=== PATIENT | female | born 1935 | race Caucasian/White ===

== ENCOUNTER 2020-02-21 09:32 | Inpatient (IN) | payer OTHER ==
[2020-02-21] MEDS ORDERED: NA CHLORIDE 0.9% 2,000 ML ONE (10:23)
[2020-02-21 10:25] LABS: Protime INR 1.07
--- NOTE | 2020-02-21 10:28 | RAD REPORT ---
EXAM DESCRIPTION: [facility] Single View02/21/2020 10:21 am CLINICAL HISTORY: Decreased appetite/weakness COMPARISON: none FINDINGS: The lungs appear clear of acute infiltrate. The heart is normal size. Prominent skin folds overlie the chest IMPRESSION: No acute abnormalities displayed
[2020-02-21 10:42] LABS: ALT/SGPT 9 U/L (12-78); AST/SGOT 17 U/L (15-37); Alkaline Phosphatase 99 U/L (45-117); BUN Blood Urea Nitrogen 24 mg/dL (7-18); Bicarbonate 16 mmol/L (21-32); Bilirubin Direct 0.1 mg/dL (0-0.2); Bilirubin Total 0.3 mg/dL (0.2-1.0); Glucose Level 219 mg/dL (74-106); Protein, Total 8.1 g/dL (6.4-8.2); Sodium Level 128 mmol/L (136-145); Troponin (Emerg Dept Use Only) < 0.02 ng/mL (0.0-0.045)
[2020-02-21 10:54] LABS: Absolute Lymphocytes (CBC) 1.2 K/uL (0.7-4.9); Basophils % 0.2 % (0-1.3); Hematocrit 37.9 % (36.0-45.0); Lymphocytes % 4.7 % (15.3-44.8); MPV 8.5 fL (7.6-11.3)
--- NOTE | 2020-02-21 11:15 | RAD REPORT ---
EXAM DESCRIPTION: CT - Head Brain Wo Cont - 02/21/2020 11:07 am CLINICAL HISTORY: Alteration of awareness/confusion COMPARISON: None TECHNIQUE: Computed axial tomography of the head was obtained. IV contrast was not requested. All CT scans are performed using dose optimization technique as appropriate and may include automated exposure control or mA/KV adjustment according to patient size. FINDINGS: An intracranial bleed is not seen . The ventricles are normal in caliber. No extra-axial fluid collection is noted. Fluid within the sinuses/ mastoids is not seen. IMPRESSION: No acute intracranial abnormality is seen. If patient's symptoms persist MRI of the bra in would be recommended.
--- NOTE | 2020-02-21 11:28 | RAD REPORT ---
EXAM DESCRIPTION: CT - Abdomen Pelvis W Contrast - 02/21/2020 11:08 am CLINICAL HISTORY: Abdominal pain COMPARISON: none. TECHNIQUE: Computed axial tomography of the abdomen pelvis was obtained. 100 cc Isovue-300 was admin istered intravenously. Oral contrast was not requested which limits evaluation of bowel. All CT scans are performed using dose optimization technique as appropriate and may include automated exposure control or mA/KV adjustment according to patient size. FINDINGS: Several nodules within the right lower lobe measuring a couple millimeters. The liver, spleen, pancreas, kidneys are unremarkable. Hyperplasia of the adrenal glands is suspected. Cholelithiasis. No gallbladder wall thickening. 6 centimeter rectal mass narrows the lumen. Mass appears to extend through the rectal wall. Evaluatio n is somewhat limited secondary to artifact from bilateral hip prostheses. Small amount of ascites. P erirectal lymph nodes Wall of the sigmoid colon mildly thickened. Borderline dilatation of the appendix. No adjacent stranding. Hemangioma T9 vertebral body. 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 Borderline dilatation of the appendix. Since there is no adjacent stranding this probably is not sign ificant. Early appendicitis can also have this appearance should be correlated clinically. Tiny right lower lobe lung nodules
--- NOTE | 2020-02-21 12:01 | ER ---
Nurse's Notes [facility] Name: Carolyn Garrett Age: 84 yrs Sex: Female : 1935 Arrival Date: 02/21/2020 Time: 09:34 Bed 5 Private MD: Diagnosis: Weakness;Leukocytosis;Rectal mass Presentation: 02/20 09:45 Chief complaint: Patient states: I've been getting weaker and weaker over the past jl7 several months, can't stand up, can't do anything for myself. Coronavirus screen: Proceed with normal triage. Ebola Screen: No symptoms or risks identified at this time. Initial Sepsis Screen: Does the patient meet any 2 criteria? HR > 90 bpm. Does the patient have a suspected source of infection? Yes: Skin breakdown/wound Risk Assessment: Do you want to hurt yourself or someone else? Patient reports no desire to harm self or others. Onset of symptoms is unknown. 09:45 Method Of Arrival: Wheelchair [facility] 09:45 Acuity: INGE 2 jl7 Triage Assessment: 09:40 General: Appears distressed, uncomfortable, ill, unkempt, emaciated, malnourished, jl7 cachectic, Behavior is calm, cooperative, appropriate for age. Pain: Denies pain. Neuro: Level of Consciousness is awake, alert, obeys commands, Oriented to person, place, time, situation. Cardiovascular: Denies chest pain, Patient's skin is warm and dry. Rhythm is sinus tachycardia Chest pain is denied. Respiratory: Airway is patent Respiratory effort is even, unlabored, Respiratory pattern is regular, symmetrical, Denies cough, shortness of breath. GI: Reports anorexia. Derm: Skin is dry, Skin is pale, Skin temperature is cool. Historical: - Allergies: 10:43 No Known Allergies; jl7 - Home Meds: 10:43 None [Active]; jl7 - PMHx: 10:43 Cancer- Cervical; jl7 - PSHx: 10:43 Hysterectomy; jl7 - Immunization history:: Adult Immunizations unknown. - Social history:: Smoking status: Patient denies any tobacco usage or history of. Screenin:00 Abuse screen: Denies threats or abuse. Denies injuries from another. pt reports she jl7 does feel safe in her home. States "My is wonderful and does everything for me.". Nutritional screening: On no prescribed diet Difficulty chewing/swallowing? No Had unintentional weight loss of 10 pounds or more. Intervention for positive screen: ED Physician notified. Tuberculosis screening: No symptoms or risk factors identified. 11:00 Fall Risk Fall in past 12 months (25 points). No secondary diagnosis (0 pts). IV access jl7 (20 points). Ambulatory Aid- None/Bed Rest/Nurse Assist (0 pts). Gait- Weak (10 pts.). Mental Status- Oriented to own ability (0 pts). Total B[place]rago Fall Scale indicates High Risk Score (45 or more points). Fall prevention measures have been instituted. Side Rails Up X 2 Placed Close to Nursing Station Frequent Obs/Assessments Occuring As available patient and family educated on Fall Prevention Program and Strategies. Assessment: 10:00 General: Pt cleaned of urine and feces. Large appendage and foul odor noted to anal jl7 area. Pt reports she had a hysterectomy several years ago.. 10:45 Reassessment: Attempted to straight cath pt; small appendage and foul odor noted, jl7 bilateral labia major are firm on palpation, meatus is not visualized, unable to straight cath at this time, ERP notified. 11:05 Reassessment: Jesús Garrett, pt's son, called and reports that the pt has been weak and jl7 not been eating or drinking x 1 week. 11:47 Reassessment: Chaperoned ERP during vaginal exam. jl7 12:10 Reassessment: Chaperoned Dr. Carrizales during rectal exam. jl7 14:30 Reassessment: Patient appears in no apparent distress at this time. No changes from jl7 previously documented assessment. Patient and/or family updated on plan of care and expected duration. Pain level reassessed. Patient is alert, oriented x 3, equal unlabored respirations, skin warm/dry/pink. Vital Signs: 09:55 BP 118 / 79; Pulse 145; Resp 19; Temp 97.8; Pulse Ox 100% ; Pain 0/10; jl7 10:15 Weight 43.09 kg; jl7 11:00 BP 118 / 79; Pulse 120; Resp 17 S; Pulse Ox 100% on R/A; jl7 11:44 BP 125 / 79; Pulse 88; Resp 16; Pulse Ox 100% ; jl7 12:44 BP 117 / 75; Pulse 86; Resp 16 S; Pulse Ox 100% on R/A; jl7 13:55 BP 119 / 73; Pulse 84; Resp 16 S; Pulse Ox 100% on R/A; jl7 14:43 BP 132 / 75; Pulse 79; Resp 16 S; Pulse Ox 100% on R/A; jl7 ED Course: 09:34 Patient arrived in ED. as 09:37 Pankaj Baker, KAYLAH is Primary Nurse. jl7 09:40 Vadim Villasenor PA is PHCP. cp 09:40 Elmer Pryor MD is Attending Physician. cp 09:40 Arm band placed on right wrist. jl7 10:00 Patient has correct armband on for positive identification. Placed in gown. Bed in low jl7 position. Call light in reach. Side rails up X2. 10:00 secured entrance monitor on. Pulse ox on. NIBP on. Warm blanket given. Pillow given. jl7 10:10 Inserted saline lock: 22 gauge in right forearm, using aseptic technique. Blood jl7 collected. 10:10 Initial lab(s) drawn, by ca, sent to lab. First set of blood cultures drawn by me. jl7 10:16 EKG done, by vascular technologist. reviewed by Vadim ALONSO. at1 10:20 X-ray completed. Portable x-ray completed in exam room. Patient tolerated procedure tm4 well. 10:22 XRAY Chest (1 view) In Process Unspecified. EDMS 10:30 Second set of blood cultures drawn by me. Inserted saline lock: 20 gauge in left jl7 forearm, using aseptic technique. Blood collected. 10:42 Triage completed. jl7 10:43 Notified Nurse Practitioner and/or Physician Qa Auditor of a critical lab result(s), dm5 Lactate 5.6. 11:08 CT Head Brain wo Cont In Process Unspecified. EDMS 11:11 CT Abd/Pelvis - IV Contrast Only In Process Unspecified. EDMS 11:59 Ky Gutierrez is Hospitalizing Provider. cp 15:32 No provider procedures requiring assistance completed. Patient admitted, IV remains in jl7 place. intact, No redness/swelling at site. Administered Medications: 10:30 Drug: NS 0.9% (30 ml/kg) 30 ml/kg Route: IV; Rate: bolus; Site: right forearm; jl7 12:00 Follow up: Response: No adverse reaction; IV Status: Completed infusion; IV Intake: jl7 1300ml 12:21 Drug: Cefepime 1 grams Route: IVPB; Rate: 200 ml/hr; Infused Over: 30 mins; Site: right jl7 forearm; 12:51 Follow up: Response: No adverse reaction; IV Status: Completed infusion jl7 12:50 Drug: vancoMYCIN 1 grams Route: IVPB; Infused Over: 2 hrs; Site: left forearm; jl7 14:50 Follow up: Response: No adverse reaction; IV Status: Completed infusion jl7 Intake: 12:00 IV: 1300ml; Total: 1300ml. jl7 Outcome: 12:01 Decision to Hospitalize by Provider. cp 15:32 Admitted to Med/surg accompanied by tech, via stretcher, room 209, with chart, Report jl7 called to KAYLAH Donato 15:32 Condition: stable 15:32 Discharge instructions given to patient, Instructed on the need for admit, Demonstrated understanding of instructions. 15:36 Patient left the ED. jl7 Signatures: Dispatcher [employer] Evelyne Quiñonez, RN RN dm5 Dayan Renner tm4 Teresa Carrizales Amanda, fermentologist EKG Tat1 Vadim Villasenor PA PA cp Leal, Jahala, RN RN jl7
--- NOTE | 2020-02-21 12:01 | EDPHYS ---
Physician Documentation [facility] Name: Carolyn Garrett Age: 84 yrs Sex: Female : 1935 Arrival Date: 02/21/2020 Time: 09:34 Bed 5 Private MD: ED Physician Elmer Pryor HPI: 02/20 09:55 This 84 yrs old Female presents to ER via Wheelchair with complaints of cp Decreased Appetite, General Weakness. 09:55 The patient's problem is reported as weakness, that is generalized. cp 09:55 Onset: The symptoms/episode began/occurred gradually. cp 09:55 Duration: The episode is continuous. Associated signs and symptoms: Pertinent cp negatives: abdominal pain, chest pain, diarrhea, vomiting, fever. Historical: - Allergies: 10:43 No Known Allergies; jl7 - Home Meds: 10:43 None [Active]; jl7 - PMHx: 10:43 Cancer- Cervical; jl7 - PSHx: 10:43 Hysterectomy; jl7 - Immunization history:: Adult Immunizations unknown. - Social history:: Smoking status: Patient denies any tobacco usage or history of. ROS: 10:05 Constitutional: Negative for body aches, chills, fever, poor PO intake. cp 10:05 Eyes: Negative for injury, pain, redness, and discharge. cp 10:05 Cardiovascular: Negative for chest pain. 10:05 Respiratory: Negative for cough, shortness of breath, wheezing. 10:05 Abdomen/GI: Negative for abdominal pain, vomiting, diarrhea, constipation, black/tarry stool, rectal bleeding. 10:05 Neuro: Positive for weakness, Negative for altered mental status, headache. 10:05 All other systems are negative. Exam: 10:10 Constitutional: The patient appears in no acute distress, alert, awake, cp non-diaphoretic, well developed, frail, obviously ill. 10:10 Head/Face: Normocephalic, atraumatic. cp 10:10 Eyes: Periorbital structures: appear normal, Pupils: equal, round, and reactive to light and accomodation, Extraocular movements: intact throughout, Conjunctiva: normal, no exudate, no injection, Sclera: no appreciated abnormality, Lids and lashes: appear normal, bilaterally. 10:10 ENT: External ear(s): are unremarkable, Ear canal(s): are normal, clear, TM's: dullness, bilaterally, Nose: is normal, Mouth: Lips: moist, Oral mucosa: moist, Posterior pharynx: Airway: no evidence of obstruction, patent. 10:10 Chest/axilla: Inspection: normal, Palpation: is normal, no crepitus, no tenderness. 10:10 Cardiovascular: Rate: tachycardic, Rhythm: regular, Edema: is not appreciated, JVD: is not appreciated. 10:10 Respiratory: the patient does not display signs of respiratory distress, Respirations: normal, no use of accessory muscles, no retractions, labored breathing, is not present, Breath sounds: are clear throughout, no decreased breath sounds, no stridor, no wheezing. 10:10 Abdomen/GI: Inspection: abdomen appears normal, Bowel sounds: active, all quadrants, Palpation: abdomen is soft and non-tender, in all quadrants. 10:10 Skin: cellulitis, lesion(s), noted, and can be described as necrotic, ulcerated, located on the rectal and perineum and inferior vaginal area. 10:10 Neuro: Orientation: to person, situation, Mentation: able to follow commands, slow to respond, Motor: moves all fours, general weakness without focal deficits. 10:15 ECG was reviewed by the Attending Physician. Vital Signs: 09:55 BP 118 / 79; Pulse 145; Resp 19; Temp 97.8; Pulse Ox 100% ; Pain 0/10; jl7 10:15 Weight 43.09 kg; jl7 11:00 BP 118 / 79; Pulse 120; Resp 17 S; Pulse Ox 100% on R/A; jl7 11:44 BP 125 / 79; Pulse 88; Resp 16; Pulse Ox 100% ; jl7 12:44 BP 117 / 75; Pulse 86; Resp 16 S; Pulse Ox 100% on R/A; jl7 13:55 BP 119 / 73; Pulse 84; Resp 16 S; Pulse Ox 100% on R/A; jl7 14:43 BP 132 / 75; Pulse 79; Resp 16 S; Pulse Ox 100% on R/A; jl7 MDM: 09:49 Patient medically screened. 11:58 Physician consultation: Ky Gutierrez was called at 11:59, was contacted at 11:59, regarding admission, to the medical/surgical unit. patient's condition. 12:05 Data reviewed: vital signs, lab test result(s), radiologic studies, CT scan, plain cp films, I have discussed the patient's presentation/case with the attending Emergency Department Physician; and as a result, I will admit patient. 12:05 Test interpretation: by ED physician or midlevel provider: ECG. Response to treatment: cp the patient's symptoms have markedly improved after treatment. 02/20 09:51 Order name: Basic Metabolic Panel; Complete Time: 10:45 02/20 10:46 Interpretation: Normal except: NA 128; CL 97; CO2 16; GLUC 219; BUN 24; GFR 53; CA 10.3. 02/20 09:51 Order name: CBC with Diff; Complete Time: 15:07 02/20 11:02 Interpretation: Normal except: WBC 26.0; RBC 5.90; HGB 11.2; MCV 64.2; MCH 19.0; MCHC cp 29.5; PLT 598; RDW 18.2; TASIA% 93.8; LYM% 4.7; MN% 1.3; NEUT A 24.4. 02/20 09:51 Order name: LFT's; Complete Time: 10:45 02/20 10:46 Interpretation: Normal except: ALT 9; ALB 3.0; GLOB 5.1; A/G 0.6. cp 02/20 09:51 Order name: Magnesium; Complete Time: 10:45 02/20 09:51 Order name: PT-INR; Complete Time: 10:45 02/20 11:50 Interpretation: Reviewed. 02/20 09:51 Order name: Troponin (emerg Dept Use Only); Complete Time: 10:45 cp 02/20 09:51 Order name: XRAY Chest (1 view); Complete Time: 10:45 cp 02/20 09:51 Order name: Urine Microscopic Only cp 02/20 10:01 Order name: Blood Culture Adult (2) cp 02/20 10:01 Order name: Procalcitonin; Complete Time: 11:16 cp 02/20 11:16 Interpretation: Reviewed. 02/20 10:01 Order name: Lactate; Complete Time: 10:45 cp 02/20 11:52 Interpretation: Abnormal: LAC 5.6. cp 02/20 10:48 Order name: CT Abd/Pelvis - IV Contrast Only; Complete Time: 11:32 cp 02/20 11:02 Order name: CBC Smear Scan; Complete Time: 15:07 EDMS 02/20 14:59 Order name: Lactate Sepsis 2 HR Follow-up; Complete Time: 15:07 EDMS 02/20 09:51 Order name: EKG; Complete Time: 09:52 cp 02/20 09:51 Order name: Cardiac monitoring; Complete Time: 11:37 cp 02/20 09:51 Order name: EKG - Nurse/Tech; Complete Time: 11:37 cp 02/20 09:51 Order name: IV Saline Lock; Complete Time: 11:37 cp 02/20 09:51 Order name: Labs collected and sent; Complete Time: 11:37 cp 02/20 09:51 Order name: O2 Per Protocol; Complete Time: 11:37 cp 02/20 09:51 Order name: O2 Sat Monitoring; Complete Time: 11:37 cp 02/20 10:48 Order name: CT Head Brain wo Cont; Complete Time: 11:32 02/20 12:02 Interpretation: Report reviewed. 02/20 13:03 Order name: Labs - recollect needed: lactate sepsis due; Complete Time: 14:42 iw EC:15 Rate is 143 beats/min. Rhythm is regular. TN interval is normal. QRS interval is cp prolonged at 102 msec. QT interval is normal. T waves are Inverted in leads aVR, V1. Interpreted by me. Reviewed by me. Administered Medications: 10:30 Drug: NS 0.9% (30 ml/kg) 30 ml/kg Route: IV; Rate: bolus; Site: right forearm; [facility] 12:00 Follow up: Response: No adverse reaction; IV Status: Completed infusion; IV Intake: jl7 1300ml 12:21 Drug: Cefepime 1 grams Route: IVPB; Rate: 200 ml/hr; Infused Over: 30 mins; Site: right jl7 forearm; 12:51 Follow up: Response: No adverse reaction; IV Status: Completed infusion [facility] 12:50 Drug: vancoMYCIN 1 grams Route: IVPB; Infused Over: 2 hrs; Site: left forearm; [facility] 14:50 Follow up: Response: No adverse reaction; IV Status: Completed infusion [facility] Disposition: 12:15 Chart complete. 02/21 09:42 Co-signature as Attending Physician, Elmer Pryor MD I agree with the assessment and kdr plan of care. Disposition: 02/21/20 12:01 Hospitalization ordered by Ky Gutierrez for Inpatient Admission. Preliminary diagnosis are Weakness, Leukocytosis, Rectal mass. - Bed requested for Telemetry/MedSurg (Inpatient). - Status is Inpatient Admission. jl7 - Condition is Stable. - Problem is new. - Symptoms have improved. Signatures: Dispatcher [employer] EDAngela James RN RN Elmer Pryor MD MD [facility] Eunice Alejandra RN RN Vadim Villasenor PA PA cp Pankaj Baker RN RN jl7 Corrections: (The following items were deleted from the chart) 02/20 10:46 10:46 Normal except: NA 128; CL 97; CO2 16; GLUC 219; BUN 24; GFR 53. cp cp 14:55 12:01 Hospitalization Ordered by Ky Gutierrez for Inpatient Admission. Preliminary dw diagnosis is Weakness; Leukocytosis. Bed requested for Telemetry/MedSurg (Inpatient). Status is Inpatient Admission. Condition is Stable. Problem is new. Symptoms have improved. cp 15:07 14:55 02/21/2020 12:01 Hospitalization Ordered by Ky Gutierrez for Inpatient cp Admission. Preliminary diagnosis is Weakness; Leukocytosis. Bed requested for Telemetry/MedSurg (Inpatient). Status is Inpatient Admission. Condition is Stable. Problem is new. Symptoms have improved. dw 15:36 15:07 02/21/2020 12:01 Hospitalization Ordered by Ky Gutierrez for Inpatient jl7 Admission. Preliminary diagnosis is Weakness; Leukocytosis; Rectal mass. Bed requested for Telemetry/MedSurg (Inpatient). Status is Inpatient Admission. Condition is Stable. Problem is new. Symptoms have improved. cp
[2020-02-21 12:12] LABS: Anisocytosis 1+; Blood Morphology Comment NOTED (NOT SEEN); Elliptocytes 1+; Hypochromasia 1+; Platelet Estimate INCR; Urine White Blood Cell Casts OK
[2020-02-21] MEDS ORDERED: VANCOMYCIN/NS 1 gm 1 GM/250 ML BAG IV ONE (12:30)
--- NOTE | 2020-02-21 13:54 | P.HP ---
Certification for Inpatient Patient admitted to: Inpatient With expected LOS: >2 Midnights Practitioner: I am a practitioner with admitting privileges, knowledge of patient current condition, hospital course, and medical plan of care. Services: Services provided to patient in accordance with Admission requirements found in Title 42 Section 412.3 of the Code of Federal Regulations Patient History Date of Service: 02/21/20 Reason for admission: Generalized weakness History of Present Illness: 84-year-old woman with a prior history of cervical cancer status post radiation therapy and chemotherapy was brought to the emergency department due to progressive generalized weakness of several months duration. Patient report that over the last 3 days have not been able to transfer from bed or used her bathroom. She also reports stool incontinence. She denied any fever, denied any vomiting. She endorsed anorexia. CT abdomen and pelvis done in the ED report a rectal mass. Blood work showed severe leukocytosis, lactic acidosis, metabolic acidosis and hyponatremia. Patient meets criteria for sepsis with tachycardia and leukocytosis. General Surgery Dr. Carrizales was contacted who recommended hospitalization for him to evaluate for biopsy and debridement as needed. She is admitted for further management. Allergies No Known Allergies Allergy (Unverified 02/21/20 12:17) Home Medications: NK [No Home Meds] 02/21/20 - Past Medical/Surgical History Diabetic: No -: Cervical cancer -: Hysterectomy - Family History Family History: Reviewed- Non-Contributory - Social History Smoking therapy provided: No Alcohol use: No CD- Drugs: No Place of Residence: Home Review of Systems Other: Except as documented, all other systems reviewed and negative. Physical Examination - Physical Exam General: In no apparent distress, Cachectic HEENT: Mucous membr. moist/pink Neck: Supple Respiratory: Clear to auscultation bilaterally, Normal air movement Cardiovascular: No edema, Regular rate/rhythm, Normal S1 S2 Capillary refill: <2 Seconds Gastrointestinal: Normal bowel sounds, Soft and benign, Non-distended, No tenderness Musculoskeletal: No erythema, No tenderness Integumentary: No rashes, No erythema Neurological: Normal strength at 5/5 x4 extr Rectal: Other Other Physical/Emotional Findings: Ulceration noted in the anal area, ? Anorectal fistula. Incontinent for stool. 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 Possible anorectal fistula. Admit patient to the medical floor. Aggressive hydration with IV NS IV antibiotics-cefepime, Vanco and Flagyl Consult general surgery. Monitor electrolytes and replete as needed. Place Langford catheter Monitor renal panel. - Advance Directives Does patient have a Living Will: No Does patient have a Durable POA for Healthcare: No - Code Status/Comfort Care Code Status: Full Code
--- NOTE | 2020-02-21 14:56 | CON ---
Date of Consultation: 02/21/2020 Reason For Service: Perianal ulceration, cellulitis, abscess, possible tumor, leukocytosis. History Of Present Illness: This is the case of an 84-year-old patient, comes to us with foul smelli ng coming from the area of perianal region and cervical region. The medical staff and the ER evaluat ed her and noticed to have some ulceration in the area of perianal region with incontinence stools an d leukocytosis. They working her up for sepsis and a surgical was consult obtained for observation. The patient stated that she recently moved from [place], but as per all the medical staff she has been here for 3 years. She stated that she has a primary doctor in that area, she does not remember the name and she has no primary doctor in this area and she states she has been looking. When I aske d her information about previous history, she does not recall. I asked her also about history of a p erianal mass or ulceration since it looks like it has been there for some time, but she does not reca ll ever being informed she has anything like that in that area and she has no primary doctor. I dylan ot get medical information, I cannot get any previous surgeries, although at one point when she told some body that she probably has cervical cancer in the past with hysterectomy. Once again, it was un able for me to know that. No family member available at this moment to get any information needed. Past Medical History: Unknown. Allergies: UNKNOWN. Surgeries: Unknown. Social History: She does not smoke. She does not drink alcohol. Family History: Unknown. Review of Systems: 10 points otherwise unremarkable. Physical Examination: General: Patient is awake and alert. She seems to answer questions, but memory is very limited. Chest: Bilateral sounds. Abdomen: Soft and depressible. No guarding or rebound. : In the area of the perianal region and perineal, patient has multiple ulcerations, incontinence stool. Some microabscesses in that region present with cellulitis. It is unable to obtain full eval uation of that area under this condition in the ER. Patient is moving and she is uncomfortable. Extremities: Good capillary refill. Laboratory Data: Blood work shows a WBC count of 26.0, hemoglobin of 11.2. INR is 1.07. Chloride 9 7, alkaline phosphate 99. Imaging Studies: CAT scan of the abdomen and pelvis interpreted by Dr. 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 Bilat eral hip prosthesis and perirectal lymph node. Assessment: This is an 84-year-old patient with rectal mass. The patient also had perianal cellulit is with some abscesses. Evaluation in the ER here is near impossible. She is moving. She does not let us to evaluate the area. So, we had talked to the primary doctor in this service right now. I a m going to have to do examination under anesthesia. I have to clean this ulcers. I have to clean th evette abscesses from that area and drain the abscess. Also, most likely, since I am there to take a li ttle biopsy of that area to see what kind of tumor she had and then when , and if this come s back as cancer then eventually we are trying to look for the best treatment and the best location f or her. Right now, we are in the national emergency, but her heart condition at this moment merits e valuation under anesthesia because I have only do the biopsy, but the most important part is to clean that area. She states she has been losing 20 pounds in the last few months. Once again, that gave us the feeling that we will treat her with bad neoplastic condition. The benefits and risks were ful ly explained to the patient of EUA, anoscopy, proctoscopy, I and D of perianal abscess and also anal mass biopsy which include, but not limited to infection, bleeding, damage to adjacent structures as c omplication, [place], even . She also understands this may not relieve the symptoms. She might need more than one surgical intervention. She understands we are in the national emergency for coronavir us and there is also a risk of being exposed to the coronavirus and get infected by it. She understo od. I talked to the primary doctor. He still needs to work on her and the medical clearance. He is not ready to clear her for surgical intervention. In the meantime, he is going to give her antibiot ics and trying to get her optimized for us. He is going to let us know. SHIRIN/DELFINO Voice ID: [id number] Report ID: [id number]
[2020-02-21] MEDS ORDERED: ONDANSETRON 4 MG/2 ML VIAL IV PRN (15:50)
[2020-02-21] MEDS ORDERED: MORPHINE 2 MG/ML SYR IV PRN (15:50)
[2020-02-21 16:10] VITALS: BMI 17.9
[2020-02-21] MEDS: NA CHLORIDE 0.9% 1,000 ML IV SCH (16:19)
[2020-02-21] MEDS: METRONIDAZOLE 500mg IVPB 500 MG/100 ML BAG IV SCH ×2 (17:00→23:13)
[2020-02-21] MEDS ORDERED: CEFEPIME 1 GM/VIAL IV SCH (21:00)
[2020-02-21] MEDS: CEFEPIME/SWI 1gm 10 ML IVP SCH (22:09)
[2020-02-22] MEDS ORDERED: VANCOMYCIN 1 GM in NA CHLORIDE 0.9% 250 ML IVPB SCH (00:30)
[2020-02-22] MEDS: NA CHLORIDE 0.9% 1,000 ML IV SCH ×3 (04:05→23:41)
[2020-02-22] MEDS: METRONIDAZOLE 500mg IVPB 500 MG/100 ML BAG IV SCH ×4 (05:17→23:41)
[2020-02-22 05:54] LABS: Absolute Lymphocytes (CBC) 1.7 K/uL (0.7-4.9); Basophils % 0.2 % (0-1.3); Hematocrit 26.7 % (36.0-45.0); Lymphocytes % 9.4 % (15.3-44.8); MPV 8.2 fL (7.6-11.3); RBC Red Blood Cell Count 4.17 M/uL (3.86-4.86)
[2020-02-22 06:10] LABS: BUN Blood Urea Nitrogen 16 mg/dL (7-18); Bicarbonate 18 mmol/L (21-32); Glucose Level 71 mg/dL (74-106); Phosphorus 2.8 mg/dL (2.5-4.9); Potassium 3.6 mmol/L (3.5-5.1); Sodium Level 138 mmol/L (136-145)
--- NOTE | 2020-02-22 07:37 | EKG ---
Test Date: 2020-02-21 Test Time: 10:09:15 Sweatband Shaper: KAMAR MEASUREMENT RESULTS: Intervals: Rate: 143 NM: 172 QRSD: 102 QT: 288 QTc: 444 [place]: P: 96 NM: 172 QRS: 83 T: 24 INTERPRETIVE STATEMENTS: Sinus tachycardia Incomplete right bundle branch block Right ventricular hypertrophy with repolarization abnormality Abnormal ECG No previous ECG available for comparison Electronically Signed On 02-22-20 07:34:56 CDT by Christ Loera
[2020-02-22] MEDS ORDERED: GLUCAGON 1 MG/VIAL IV PRN (08:32)
[2020-02-22] MEDS: CEFEPIME/SWI 1gm 10 ML IVP SCH ×3 (08:51→20:49)
[2020-02-22] MEDS ORDERED: KCL 20 MEQ/100 mL IVPB 20 MEQ/100 ML BAG IV SCH (09:00)
[2020-02-22] MEDS ORDERED: D50W 25 GM/50 ML SYRINGE/VIAL IV ONE ×2 (09:09→09:10)
[2020-02-22] MEDS ORDERED: LIDOCAINE 2% MPF 5 ML VIAL ONE (09:46)
[2020-02-22] MEDS ORDERED: propofoL 200 MG/20 ML VIAL IV ONE (09:46)
[2020-02-22] MEDS ORDERED: FENTANYL CITR 100 MCG/2 ML ONE (09:46)
[2020-02-22] MEDS ORDERED: dexAMETHasone 10 MG/ML VIAL ONE (09:49)
[2020-02-22] MEDS ORDERED: EPHEDRINE SULF 50 MG/ML VIAL ONE (10:24)
[2020-02-22] MEDS ORDERED: KETOROLAC 30 MG/ML INJ ONE (10:58)
[2020-02-22] MEDS ORDERED: NA CHLORIDE 0.9% 1,000 ML ONE (11:13)
--- NOTE | 2020-02-22 11:34 | P.BOP ---
Preoperative diagnosis: PErianal abscess, Large PErianal/Periractal mass, proctitis, colitis Postoperative diagnosis: same, advance large insurated mass Primary procedure: EUA, Anoscopy, Rigid proctoscopy, I +D perianal abscess Secondary procedure: Incisional biopsy perianal ulcerated mass Estimated blood loss: <10cc Specimen: culture, Mass Findings: Large indurated , ulcerated, FRiable perianal and rectal mass Anesthesia: Local Complications: None Transferred to: Recovery Room Condition: Good
[2020-02-22] MEDS ORDERED: POTASSIUM CL SA 10 MEQ TAB PO ONE (12:25)
--- NOTE | 2020-02-22 13:39 | OP ---
Date of Procedure: 02/22/2020 Surgeon: Indra Carrizales MD Preoperative Diagnoses: 1.Perianal abscess. 2.Large perianal and perirectal mass. 3.Proctitis. 4.Colitis. Postoperative Diagnoses: 1.Perianal abscess. 2.Large perianal and perirectal mass. 3.Proctitis. 4.Colitis. 5.Dense mass effect over the rectum and perianal region. Procedures: Examination under anesthesia, anoscopy, rigid proctoscopy, incision and drainage of charli anal abscess, and incisional biopsy of perianal large ulcerated mass. Estimated Blood Loss: Less than 10 mL. Specimens: Culture and mass biopsy. Findings: This patient has an extensive disease. The rectum is so hard that proctoscopy is almost i mpossible and is friable. The sphincter looks destroyed. There is no is sphincter. There is no manuela sure of that perianal region. The anal region was completely in close with this ulcerated friable pe rianal mass that extends into the rectal area. The buttocks show induration, may be metastatic disea se in that area, left and right, extensive induration about 20 cm at any side. The area includes als o part of the perineum. Through the rectum, we can now see of this, although there is clear fluid co anastasia through it. I cannot rule out a colovesical fistula, very advanced disease. Indications: This is an 84-year-old patient, comes to us with leukocytosis, admitted for sepsis, fou nd to have a perianal mass with ulcerations allowing this superimposed infection. Patient understand s her disease. She claims she has not seen this before, but looks like it is so extensive. It has b een there for some time. The thing is now she has a superimposed infection. So, we proposed incisio nal and drainage of perianal abscess. We cannot take care of the tumor at this moment. We will take a biopsy of that area, so patient then will have to be transferred to a colorectal or tertiary doctors hospital for the rest of the treatment or if she goes home, then she has to follow up with them. The benefi ts and risks of EUA, anoscopy, proctoscopy, incision and drainage of perianal abscess, and incisional biopsy of perianal mass fully explained to the patient, which include but not limited to infection, bleeding, damage to adjacent structures, anesthesia complication, nonhealing wound, NC, and even deat h. She also understands this may not relieve the symptoms. She might need more than 1 surgical inte rvention. She understands there is a national emergency around with coronavirus virus outbreak and s he has a chance to contract coronavirus, but at the same time, this was just giving her so much disco mfort and infection and we are going to have to drain that, then the antibiotics, and then if biopsy comes back positive that I relate it will, then she needs some other center since she may have to rec eive treatment before any surgery to be done. She understood and signed a consent. Description Of Procedure: Patient was brought to the operating room, placed in supine position. Ane sthesia was done without complication. Patient was placed in lithotomy position with proper protecti on. The area was prepped and draped in a sterile fashion. The anal area was so indurated, so we can see inside the rectum. We did anoscopy partially. The mass was friable. There were ulcerations, t hat were bleeding, that came by just touching it. We did the rectum was so hard that it w as difficult to do since there was no banding on that area. Up to the area, we saw once again contin ued tumor into the rectum area up to our eyes can see. At that moment, we all the went to the perian al region. Due to this ulceration, she had microabscesses. This had to be drained. Some abscess in the perianal region was also drained. Irrigation was done. Cultures done and then this fungating m ass that protruded through the anus. We were able to remove from the anus, so we do not have to go t o the rectum since it was very friable and bleeding. We go over the perianal mass, we took the biops y and sent it to the pathologist and that will help us understand her pathology better and treatment. Hemostasis obtained. Area was covered with sterile dressings. Patient was sent to Recovery in stable condition. SHIRIN/DELFINO Voice ID: [id number] Report ID: [id number]
--- NOTE | 2020-02-22 14:34 | EKG ---
Test Date: 2020-02-21 Test Time: 17:47:21 Trench Digger: KEMAR MEASUREMENT RESULTS: Intervals: Rate: 96 [place]: 192 QRSD: 106 QT: 358 QTc: 452 [place]: P: 72 [place]: 192 QRS: 70 T: 40 INTERPRETIVE STATEMENTS: Normal sinus rhythm Incomplete right bundle branch block ST abnormality, possible digitalis effect Abnormal ECG Compared to ECG 02/21/2020 10:09:15 ST (T wave) deviation now present Sinus tachycardia no longer present Right ventricular hypertrophy no longer present Early repolarization no longer present Electronically Signed On 02-22-20 14:32:57 CDT by Christ Loera
[2020-02-22] MEDS ORDERED: NA CHLORIDE 0.9% 250 ML IV PRN (17:04)
--- NOTE | 2020-02-22 17:46 | P.PN ---
Subjective Date of Service: 02/22/20 Chief Complaint: Generalized weakness Status post rectal examination under anesthesia today. Patient noted to have a large perirectal) and perianal mass, and proctitis. Incisional biopsy obtained. Noted drop in hemoglobin. Borderline low blood pressure. Patient has been afebrile. Patient seen after surgery and she denies any pain. Physical Examination - Vital Signs Temperature: 97.2 F Blood Pressure: 82/51 Pulse: 83 Respirations: 18 Pulse Ox (%): 98 - Physical Exam General: Alert, In no apparent distress, Oriented x3 HEENT: Mucous membr. moist/pink Neck: Supple Respiratory: Clear to auscultation bilaterally, Normal air movement Cardiovascular: No edema, Regular rate/rhythm, Normal S1 S2 Gastrointestinal: Normal bowel sounds, Soft and benign, Non-distended, No tenderness Musculoskeletal: No erythema Integumentary: No rashes Neurological: Other (Nonfocal) Assessment And Plan - Current Problems (Diagnosis) (1) Rectal mass Current Visit: Yes Status: Acute (2) Sepsis Current Visit: Yes Status: Acute (3) Hyponatremia Current Visit: Yes Status: Acute (4) History of cervical cancer Current Visit: Yes Status: Acute - Plan Continue IV hydration. IV normal saline bolus p.r.n. Continue IV antibiotics-cefepime, Vanco and Flagyl Dr. Carrizales recommend colorectal surgery evaluation. Transfer to a tertiary center to be evaluated by a colorectal surgeon initiated. Meanwhile will continue treatment for sepsis and rectal/perianal abscess. Follow cultures and biopsy result Monitor electrolytes and replete as needed. Monitor hemoglobin and transfuse p.r.n. for hemoglobin less than 7 [address] Langford catheter Pain management as needed.
[2020-02-22] MEDS: MUPIROCIN 2% OINT 22GM TUBE TOP SCH ×2 (18:40→23:41)
[2020-02-22] MEDS: ENSURE ENLIVE 237 ML CAN PO SCH (20:50)
[2020-02-23] MEDS: ACETAMINOPHEN 500 MG TAB PO PRN
[2020-02-23] MEDS ORDERED: VANCOMYCIN 750 MG in NA CHLORIDE 0.9% 150 ML IVPB SCH (01:00)
[2020-02-23] MEDS: METRONIDAZOLE 500mg IVPB 500 MG/100 ML BAG IV SCH ×4 (05:38→23:59)
[2020-02-23 06:35] LABS: Absolute Lymphocytes (CBC) 1.4 K/uL (0.7-4.9); Basophils % 0.1 % (0-1.3); Hematocrit 25.1 % (36.0-45.0); Lymphocytes % 7.6 % (15.3-44.8); MPV 8.4 fL (7.6-11.3)
[2020-02-23 07:48] LABS: BUN Blood Urea Nitrogen 13 mg/dL (7-18); Bicarbonate 17 mmol/L (21-32); Glucose Level 110 mg/dL (74-106); Potassium 3.3 mmol/L (3.5-5.1); Sodium Level 141 mmol/L (136-145)
[2020-02-23] MEDS: NA CHLORIDE 0.9% 1,000 ML IV SCH ×3 (07:50→21:54)
[2020-02-23] MEDS ORDERED: POTASSIUM CL SA 10 MEQ TAB PO ONE (09:00)
[2020-02-23] MEDS: CEFEPIME/SWI 1gm 10 ML IVP SCH ×2 (09:39→21:54)
[2020-02-23] MEDS: MUPIROCIN 2% OINT 22GM TUBE TOP SCH ×2 (09:40→21:59)
[2020-02-23] MEDS: ENSURE ENLIVE 237 ML CAN PO SCH ×2 (09:41→22:03)
--- NOTE | 2020-02-23 10:54 | P.PN ---
Subjective Date of Service: 02/23/20 Chief Complaint: Generalized weakness Patient currently has no complain. She denies any pain. Transfer to [facility] initiated. I spoke to general surgery team at [facility] and they recommend transfer on Tuesday when colorectal surgeon will be available. Physical Examination - Vital Signs Temperature: 97.0 F Blood Pressure: 122/68 Pulse: 85 Respirations: 16 Pulse Ox (%): 99 - Physical Exam General: Alert, In no apparent distress HEENT: Mucous membr. moist/pink Respiratory: Clear to auscultation bilaterally, Normal air movement Cardiovascular: No edema, Regular rate/rhythm, Normal S1 S2 Gastrointestinal: Normal bowel sounds, Soft and benign, Non-distended, No tenderness Integumentary: No rashes Neurological: Other (Nonfocal) Other Physical/Emotional Findings: Ulceration noted in the anal area, ? Anorectal fistula. Incontinent for stool. Assessment And Plan - Current Problems (Diagnosis) (1) Rectal mass Current Visit: Yes Status: Acute (2) Sepsis Current Visit: Yes Status: Acute (3) Hyponatremia Current Visit: Yes Status: Acute (4) History of cervical cancer Current Visit: Yes Status: Acute - Plan Continue IV hydration. Continue IV antibiotics. Transfuse 1 unit PRBC. Transfer to [facility] to be evaluated by a colorectal surgeon on hold till Tuesday. Blood cultures: no growth to date Wound culture is pending. Follow cultures and biopsy result Place Langford catheter Pain management as needed. Encouraged oral intake and nutrition.
[2020-02-23] MEDS ORDERED: NA CHLORIDE 0.9% 250 ML IV SCH (11:00)
[2020-02-23 12:08] LABS: Platelet Estimate ADEQ; Urine White Blood Cell Casts OK
[2020-02-23 12:09] LABS: Anisocytosis 2+; Blood Morphology Comment NOTED (NOT SEEN); Poikilocytosis 1+
[2020-02-23] MEDS ORDERED: NA CHLORIDE 0.9% 250 ML ONE (14:20)
[2020-02-23 19:57] LABS: Hematocrit 31.8 % (36.0-45.0)
[2020-02-23] MEDS ORDERED: POTASSIUM 25 MEQ EFFERV TAB PO ONE (21:10)
[2020-02-24] MEDS ORDERED: VANCOMYCIN 750 MG in NA CHLORIDE 0.9% 150 ML IVPB SCH (01:00)
[2020-02-24 05:39] LABS: Absolute Lymphocytes (CBC) 1.9 K/uL (0.7-4.9); Basophils % 0.2 % (0-1.3); Hematocrit 31.7 % (36.0-45.0); MPV 8.3 fL (7.6-11.3); RBC Red Blood Cell Count 4.74 M/uL (3.86-4.86)
[2020-02-24] MEDS: METRONIDAZOLE 500mg IVPB 500 MG/100 ML BAG IV SCH (06:15)
[2020-02-24 06:54] LABS: BUN Blood Urea Nitrogen 10 mg/dL (7-18); Bicarbonate 18 mmol/L (21-32); Glucose Level 111 mg/dL (74-106); Sodium Level 142 mmol/L (136-145)
[2020-02-24] MEDS: ENSURE ENLIVE 237 ML CAN PO SCH ×2 (08:49→21:39)
[2020-02-24] MEDS: CEFEPIME/SWI 1gm 10 ML IVP SCH (08:49)
[2020-02-24] MEDS: MUPIROCIN 2% OINT 22GM TUBE TOP SCH ×2 (08:50→21:39)
--- NOTE | 2020-02-24 09:28 | P.PN ---
Subjective Date of Service: 02/24/20 Chief Complaint: Generalized weakness Subjective: Improving (Patient is improving she is eating feeling weak lack of appetite possible transfer tomorrow no new complaint) Review of Systems General: Weakness Physical Examination - Vital Signs Temperature: 99.0 F Blood Pressure: 149/71 Pulse: 93 Respirations: 16 Pulse Ox (%): 99 - Physical Exam General: Alert, In no apparent distress, Oriented x3 Respiratory: Clear to auscultation bilaterally Cardiovascular: No edema, Regular rate/rhythm Other Physical/Emotional Findings: Ulceration noted in the anal area, ? Anorectal fistula. Incontinent for stool. Assessment & Plan - Problems (Diagnosis) (1) Rectal mass Current Visit: Yes Status: Acute Plan: Patient has a rectal mass scheduled to be transferred tomorrow white count is still elevated hemoglobin is now stable and 1 unit of blood transfusion patient's cultures are negative rectal mass on CT change Zosyn Dc cefepime patient had a perianal abscess that was drained change to p.o. doxycycline for Mr SA coverage patient is eating and drinking all cultures are negative so for Discharge Plan: Transfer
[2020-02-24] MEDS: PIPER/TAZO/NS 3.375gm 3.375 GM/100 ML BAG IVPB SCH ×2 (10:12→17:12)
[2020-02-24] MEDS: DOXYCYCLINE 100 MG CAP PO SCH ×2 (10:12→21:38)
[2020-02-24] MEDS: NA CHLORIDE 0.9% 1,000 ML IV SCH (14:16)
[2020-02-24] MEDS ORDERED: DIGOXIN 0.25 MG/ML AMP IV ONE (21:02)
[2020-02-24] MEDS: ACETAMINOPHEN 500 MG TAB PO PRN (21:38)
[2020-02-25] MEDS: PIPER/TAZO/NS 3.375gm 3.375 GM/100 ML BAG IVPB SCH ×2 (01:11→10:41)
[2020-02-25] MEDS: NA CHLORIDE 0.9% 1,000 ML IV SCH ×2 (01:11→14:02)
[2020-02-25 02:37] VITALS: O2SAT 98
[2020-02-25] MEDS ORDERED: DIGOXIN 0.25 MG/ML AMP IV SCH (03:00)
[2020-02-25 05:44] LABS: Hematocrit 35.5 % (36.0-45.0); MPV 8.6 fL (7.6-11.3); RBC Red Blood Cell Count 5.28 M/uL (3.86-4.86)
[2020-02-25] MEDS ORDERED: ENOXAPARIN 40 MG/0.4 ML SQ SCH (06:00)
--- NOTE | 2020-02-25 07:22 | EKG ---
Test Date: 2020-02-24 Test Time: 22:37:13 Administrative Specialist: RT MEASUREMENT RESULTS: Intervals: Rate: 92 MT: 190 QRSD: 106 QT: 354 QTc: 437 [place]: P: 67 MT: 190 QRS: 57 T: 6 INTERPRETIVE STATEMENTS: Normal sinus rhythm Incomplete right bundle branch block Nonspecific ST and T wave abnormality Abnormal ECG Compared to ECG 02/24/2020 20:47:56 Atrial fibrillation no longer present Ventricular premature complex(es) no longer present Possible ischemia no longer present ST (T wave) deviation still present Electronically Signed On 02-25-20 07:21:52 CDT by Christ Loera
--- NOTE | 2020-02-25 07:22 | EKG ---
Test Date: 2020-02-24 Test Time: 20:47:56 Addresser: RT MEASUREMENT RESULTS: Intervals: Rate: 114 [place]: QRSD: 104 QT: 298 QTc: 410 [place]: P: [place]: QRS: 55 T: -16 INTERPRETIVE STATEMENTS: Atrial fibrillation with rapid ventricular response with premature ventricular or aberrantly conducted complexes Low voltage QRS Incomplete right bundle branch block ST & T wave abnormality, consider anterior ischemia or digitalis effect Abnormal ECG Compared to ECG 02/21/2020 17:47:21 Ventricular premature complex(es) now present Low QRS voltage now present Possible ischemia now present Sinus rhythm no longer present ST (T wave) deviation still present Electronically Signed On 02-25-20 07:22:03 CDT by Christ Loera
--- NOTE | 2020-02-25 08:17 | CON ---
Date of Consultation: 02/25/2020 Admitted on 02/21/2020 for a perirectal abscess and mass. Reason For Consultation: New-onset atrial fibrillation and flutter. History Of Present Illness: Ms. Garrett is an 84-year-old woman, who has no past cardiac history. She used to live in [place] and now lives here locally. Apparently, has had a negative cardiac workup in [place] about a year ago. She has a history of cervical cancer status post chemotherapy and rad iation therapy. Came in with weakness and was found to have a perirectal mass. She is now status po st incision and drainage of a perirectal abscess with biopsy by Dr. Carrizales. This was done on 02/21. Her last white count is 18,000. Her laboratory evaluation was fairly unremarkable, but today she went into atrial fibrillation with rapid ventricular response. She has received 3 dosages of di goxin. Her heart rate remains in atrial fibrillation at about 110. She does not feel her atrial fib rillation and is not having any symptoms with it. Past Medical History: Otherwise stated above. Allergies: NONE. Medications At Home: None. Review of Systems: Negative. Social History: Negative. Family History: Negative. Physical Examination: General: Ms. Garrett is very pleasant, alert and oriented x3. Vital Signs: Atrial fibrillation at a rate of 110, otherwise afebrile. Blood pressure is adequate. HEENT: Negative. Neck: Supple with no bruit. Chest: Clear. Cardiac: Revealed atrial fibrillation. No gallops, murmurs, or rubs. Abdomen: Benign. Extremities: Revealed no clubbing, cyanosis, or edema. Diagnostic Data: Her white count is 18,000. EKG before she went into atrial fibrillation showed sin us rhythm with incomplete right bundle-branch block and nonspecific changes. Impression And Plan: New-onset atrial fibrillation, may have been secondary to the stress of surgery and her abscess. Nevertheless, she did not respond to digoxin. Her blood pressure is normal. I am going to start her on Betapace 80 mg one p.o. b.i.d. I agree with Lovenox. Continue antibiotics an d potassium supplementation. Obtained a 2D echocardiogram today and we will see what we will do afte r the echocardiogram is done. Hopefully, this is temporary. Nevertheless, depending on the echo, we will decide whether to put on aspirin or one of the new anticoagulants. I will continue to follow h er. LATOYA/DELFINO Voice ID: [id number] Report ID: [id number]
--- NOTE | 2020-02-25 08:51 | P.PN ---
Subjective Date of Service: 02/25/20 Chief Complaint: Generalized weakness Patient has no complain. She reports anorexia. She denies pain. Patient has been in and out of atrial flutter/atrial fibrillation. Physical Examination - Vital Signs Temperature: 97.3 F Blood Pressure: 110/68 Pulse: 88 Respirations: 16 Pulse Ox (%): 98 - Physical Exam General: Alert, In no apparent distress, Oriented x3 HEENT: Mucous membr. moist/pink Respiratory: Clear to auscultation bilaterally, Normal air movement Cardiovascular: No edema, Regular rate/rhythm, Normal S1 S2 Gastrointestinal: Normal bowel sounds, Soft and benign, Non-distended, No tenderness Musculoskeletal: No erythema Neurological: Normal speech, Other (Nonfocal) Other Physical/Emotional Findings: Ulceration noted in the anal area, ? Anorectal fistula. Incontinent for stool. Assessment And Plan - Current Problems (Diagnosis) (1) Rectal mass Current Visit: Yes Status: Acute (2) Sepsis Current Visit: Yes Status: Acute (3) Hyponatremia Current Visit: Yes Status: Acute (4) History of cervical cancer Current Visit: Yes Status: Acute (5) Anemia Current Visit: Yes Status: Acute - Plan Reduce IV fluids rate. Leukocytosis trending down slowly. Antibiotics changed to IV Zosyn and oral doxycycline. Cardiology input appreciated. Patient started on Betapace for AFib Monitor electrolytes and replete as needed. Multiple attempts to place Langford catheter have been unsuccessful. Re-initiate transferred to [facility] today to be evaluated by colorectal surgeon. Soft diet. Anemia of chronic disease. Status post 1 unit PRBC transfusion. Continue to monitor CBC.
[2020-02-25] MEDS ORDERED: SOTALOL HCL 80 MG TAB PO SCH (09:00)
--- NOTE | 2020-02-25 10:30 | P.DS ---
Admission Date: 02/21/20 Discharge Date: 02/25/20 Disposition: TRANSFER TO [facility] Discharge Condition: FAIR Reason for Admission: Generalized weakness Consultations: General Surgery-Dr. Carrizales Procedures: Rectal examination under anesthesia. Biopsy of rectal mass, incision and drainage of rectal abscess. - Problems (1) Rectal mass Current Visit: Yes Status: Acute (2) Sepsis Current Visit: Yes Status: Acute (3) Hyponatremia Current Visit: Yes Status: Acute (4) History of cervical cancer Current Visit: Yes Status: Acute (5) Anemia Current Visit: Yes Status: Acute Brief History of Present Illness: 84-year-old woman with a prior history of cervical cancer status post radiation therapy and chemotherapy was brought to the emergency department due to progressive generalized weakness of several months duration. Patient report that over the last 3 days have not been able to transfer from bed or used her bathroom. She also reports stool incontinence. She denied any fever, denied any vomiting. She endorsed anorexia. CT abdomen and pelvis done in the ED reported a rectal mass. Blood work showed severe leukocytosis, lactic acidosis, metabolic acidosis and hyponatremia. Patient meets criteria for sepsis with tachycardia and leukocytosis. General Surgery Dr. Carrizales was contacted who recommended hospitalization for him to evaluate for biopsy and debridement as needed. She was admitted for further management. Hospital Course: Patient admitted to the medical floor and treated aggressively with broad spectrum IV antibiotics. Rectal examination under anesthesia in the OR was done, patient noted to have a large rectal mass with mass effect in the perianal and perirectal region. Incision and drainage of perianal abscess was also done. All cultures yielded no growth. Dr. Carrizales recommended transfer to a tertiary hospital for a colorectal surgeon evaluation. I spoke to Dr. Schaefer- colorectal surgeon at [facility] who has accepted patient for transfer. Note multiple attempts to insert a Langford catheter was unsuccessful. Patient has been experiencing intermittent runs of AFib with RVR. She has been seen by cardiology who has prescribed Betapace. She is currently in sinus rhythm. Her vitals have been stable and deemed clinically stable for transfer. Vital Signs/Physical Exam: Temp Pulse Resp BP Pulse Ox 97.3 F 88 16 110/68 98 02/25/20 08:51 02/25/20 08:51 02/25/20 08:51 02/25/20 08:51 02/25/20 08:51 General: Alert, In no apparent distress, Oriented x3 HEENT: Mucous membr. moist/pink Neck: Supple Respiratory: Clear to auscultation bilaterally, Normal air movement Cardiovascular: No edema, Regular rate/rhythm, Normal S1 S2 Gastrointestinal: Normal bowel sounds, Soft and benign, Non-distended, No tenderness Integumentary: No rashes Neurological: Other (Nonfocal) Other Physical/Emotional Findings: Ulceration noted in the anal area, ? Anorectal fistula. Incontinent for stool. Laboratory Data at Discharge: WBC 18.5 K/uL (4.3-10.9) H 02/25/20 05:20 Hgb 10.9 g/dL (12.0-15.0) L 02/25/20 05:20 Hct 35.5 % (36.0-45.0) L 02/25/20 05:20 Plt Count 371 K/uL (152-406) 02/25/20 05:20 PT 12.6 SECONDS (9.5-12.5) H 02/21/20 10:10 INR 1.07 02/21/20 10:10 Sodium 142 mmol/L (136-145) 02/24/20 05:22 Potassium 4.0 mmol/L (3.5-5.1) 02/24/20 05:22 BUN 10 mg/dL (7-18) 02/24/20 05:22 Creatinine 0.43 mg/dL (0.55-1.3) L 02/24/20 05:22 Glucose 111 mg/dL (74-106) H 02/24/20 05:22 Phosphorus 2.8 mg/dL (2.5-4.9) 02/22/20 05:25 Magnesium 2.0 mg/dL (1.8-2.4) 02/22/20 05:25 Total Bilirubin 0.3 mg/dL (0.2-1.0) 02/21/20 10:10 AST 17 U/L (15-37) 02/21/20 10:10 ALT 9 U/L (12-78) L 02/21/20 10:10 Alkaline Phosphatase 99 U/L (45-117) 02/21/20 10:10 Home Medications: NK [No Home Meds] 02/21/20 Diet: Regular Activity: Fall precautions
[2020-02-25] MEDS: DOXYCYCLINE 100 MG CAP PO SCH (10:38)
[2020-02-25] MEDS: ENSURE ENLIVE 237 ML CAN PO SCH (10:39)
[2020-02-25] MEDS: MUPIROCIN 2% OINT 22GM TUBE TOP SCH (14:04)
[2020-02-25 14:47] VITALS: BP 115/67; TEMP 97.8
--- NOTE | 2020-02-25 16:18 | EKG ---
Test Date: 2020-02-24 Test Time: 16:42:37 [place] Attacher: KEMAR MEASUREMENT RESULTS: Intervals: Rate: 95 [place]: 186 QRSD: 110 QT: 368 QTc: 462 [place]: P: 27 [place]: 186 QRS: 42 T: -3 INTERPRETIVE STATEMENTS: Sinus tachycardia with blocked premature atrial complexes Low voltage QRS Right bundle branch block Abnormal ECG Compared to ECG 02/21/2020 17:47:21 Atrial premature complex(es) now present Low QRS voltage now present Right bundle-branch block now present Sinus rhythm no longer present Incomplete right bundle-branch block no longer present ST (T wave) deviation no longer present Electronically Signed On 02-25-20 16:16:22 CDT by Christ Loera
--- NOTE | 2020-02-25 16:18 | EKG ---
Test Date: 2020-02-24 Test Time: 16:49:50 Negative Notcher: KEMAR MEASUREMENT RESULTS: Intervals: Rate: 96 MD: QRSD: 108 QT: 350 QTc: 442 [place]: P: MD: QRS: 49 T: 15 INTERPRETIVE STATEMENTS: Sinus tachycardia with 2nd degree AV block (Mobitz I) with occasional premature ventricular complexes Low voltage QRS Incomplete right bundle branch block ST & T wave abnormality, consider anterior ischemia Abnormal ECG Compared to ECG 02/24/2020 16:42:37 Ventricular premature complex(es) now present Incomplete right bundle-branch block now present ST (T wave) deviation now present Possible ischemia now present Atrial premature complex(es) no longer present Right bundle-branch block no longer present Electronically Signed On 02-25-20 16:16:20 CDT by Christ Loera
--- NOTE | 2020-02-26 08:12 | ECHO ---
HEIGHT: 5 ft 1 in WEIGHT: 95 lb 0 oz DATE OF STUDY: 02/25/[address]: Juvenal Sanchez MD 2-DIMENSIONAL: YES M.MODE: YES DOPPLER: YES COLOR FLOW: YES TDS: NO PORTABLE: NO DEFINITY: NO BUBBLE STUDY: NO DIAGNOSIS: ATRIAL FLUTTER CARDIAC HISTORY: CATHERIZATION: NO SURGERY: NO PROSTHETIC VALVE: NO PACEMAKER: NO MEASUREMENTS (cm) DIASTOLIC (NORMALS) SYSTOLIC (NORMALS) IVSd 0.8 (0.6-1.2) LA Diam 2.8 (1.9-4.0) LVEF 77% LVIDd 3.1 (3.5-5.7) LVIDs 1.7 (2.0-3.5) %FS 45% LVPWd 1.0 (0.6-1.2) Ao Diam 2.6 (2.0-3.7) 2 DIMENSIONAL ASSESSMENT: RIGHT ATRIUM: NORMAL LEFT ATRIUM: NORMAL RIGHT VENTRICLE: NORMAL LEFT VENTRICLE: NORMAL TRICUSPID VALVE: NORMAL MITRAL VALVE: MITRAL ANNULAR CALCIFICATION PULMONIC VALVE: NORMAL AORTIC VALVE: SCLEROSIS PERICARDIAL EFFUSION: NONE AORTIC ROOT: NORMAL LEFT VENTRICULAR WALL MOTION: NORMAL DOPPLER/COLOR FLOW: NORMAL COMMENTS: NORMAL LEFT VENTRICULAR SIZE AND FUNCTION. NO MITRAL VALVE PROLAPSE. NO WALL MOTION ABNORMALITY. NORMAL LEFT ATRIAL SIZE. MITRAL ANNULAR CALCIFICATION. AORTIC SCLEROSIS WITH NO STENOSIS. TECHNOLOGIST: Bhaskar DURÁN
== END 2020-02-25 14:45 | disposition short-term general hospital (02) | DRG 872 ==
LOC: ER 09:32 → ERHOLD 14:02 → 2ND 15:17
PROVIDERS: ADMIT Internal Medicine; ATTEND Internal Medicine
PROC: 0D9P8ZX Drainage of Rectum, Via Natural or Artificial Opening Endoscopic, Diagnostic (ICD-10-PCS; principal; 2020-02-22 10:00)
PROC: 30233N1 Transfusion of Nonautologous Red Blood Cells into Peripheral Vein, Percutaneous Approach (ICD-10-PCS; 2020-02-23)
DX: A41.9 Sepsis, unspecified organism (principal); E87.1 Hypo-osmolality and hyponatremia; R64 Cachexia; Z68.1 Body mass index [BMI] 19.9 or less, adult; K61.1 Rectal abscess; L02.215 Cutaneous abscess of perineum; I48.91 Unspecified atrial fibrillation; Z92.3 Personal history of irradiation; Z92.21 Personal history of antineoplastic chemotherapy; Z90.710 Acquired absence of both cervix and uterus; Z85.41 Personal history of malignant neoplasm of cervix uteri; K62.89 Other specified diseases of anus and rectum; K52.9 Noninfective gastroenteritis and colitis, unspecified; D63.8 Anemia in other chronic diseases classified elsewhere; D53.9 Nutritional anemia, unspecified
CPT/HCPCS: 36415; 70450; 71045; 74177; 80048; 80076; 80202; 82947; 83605; 83735; 84100; 84132; 84145; 84484; 85014; 85018; 85025; 85027; 85610; 86850; 86900; 86901; 87040; 87070; 87075; 87205; 88305; 93005; 93306; 96365; 96366; 96368; 97116; 97161; 97530; 99285; J0692; J1100; J1160; J1610; J1650; J2543; J2704; J3010; J3370; J7030; P9016; Q9967